=== PATIENT | female | born 1950 | race Caucasian/White ===

== ENCOUNTER 2023-06-23 06:45 | Observation (INO) ==
[~2023-06-23 06:45] MED LIST: Buffered Lidocaine 1% SYRIN 1 ml INTRADERM ONE; Naloxone 0.4 mg VIAL 0.4 mg/ml 1 ml VIAL IV PRN
[2023-06-23] MEDS ORDERED: ROPIVACAINE 5 MG/ML 30 ML BTL (0.5%) ONE ×2 (07:09→08:24)
[2023-06-23 07:35] LABS: Rapid COVID-19 Molecular Undetected (Undetected)
[2023-06-23] MEDS ORDERED: Midazolam 2 mg/2 ml VIAL 1 mg/ml 2 ml VIAL (2 mg) ONE (08:24)
[2023-06-23] MEDS ORDERED: ceFAZolin 2 GM PREMIX 2 GM/50 ML BAG ONE (09:09)
[2023-06-23] MEDS ORDERED: Tranexamic Acid 1 GM/100ML BAG 2,000 MG/200 ML BAG IV ONE (09:09)
[2023-06-23] MEDS ORDERED: Ondansetron 4 mg VIAL 2 MG/ML 2 ml VIAL ONE (09:36)
[2023-06-23] MEDS ORDERED: Dexamethasone IV 4 MG/ML VIAL 1 ml VIAL ONE (09:36)
[2023-06-23] MEDS ORDERED: Ondansetron ODT 4 mg TAB 4 MG TAB PO PRN (10:29)
[2023-06-23] MEDS ORDERED: Lactulose 30 ml UDC PO PRN (10:29)
[2023-06-23] MEDS ORDERED: Magnesium Hydroxide LIQ 30 ML UDC PO PRN (10:29)
[2023-06-23] MEDS ORDERED: Morphine 2 MG/ML SYRINGE IV PRN (10:29)
[2023-06-23] MEDS ORDERED: Ondansetron 4 mg VIAL 2 MG/ML 2 ml VIAL IV PRN (10:29)
[2023-06-23] MEDS ORDERED: Propofol 10 MG/ML 20 ML BTL ONE (10:38)
[2023-06-23] MEDS ORDERED: fentaNYL 100 mcg/2 ml 50 MCG/ML VIAL ONE (11:47)
[2023-06-23] MEDS: fentaNYL 100 mcg/2 ml 50 MCG/ML VIAL IV PRN (11:55)
[2023-06-23] MEDS: Lactated Ringers 1000 ml BAG 1,000 ML IV SCH ×2 (14:43→14:47)
[2023-06-23] MEDS: ceFAZolin 1 GM ADVAN 1 GM in NS 0.9% 50 ML 50 ML IVPB SCH (16:50)
[2023-06-23 17:05] VITALS: BP 134/79
[2023-06-23] MEDS ORDERED: Magnesium Hydroxide LIQ 30 ML UDC PO SCH (21:00)
[2023-06-24] MEDS ORDERED: Vitamin THERAPEUTIC TAB PO SCH (09:00)
== END 2023-06-23 18:08 | disposition home or self-care (01) ==
LOC: SSU 06:45 → OR 06:45
PROVIDERS: ADMIT Orthopaedic Surgery Adult Reconstructive Orthopaedic Surgery; ATTEND Orthopaedic Surgery Adult Reconstructive Orthopaedic Surgery